=== PATIENT | male | born 1995 | race Caucasian/White ===

== ENCOUNTER 2021-11-07 15:51 | Inpatient (IN) | payer MEDICAID, OTHER ==
--- NOTE | 2021-11-07 17:32 | ED ---
Psych HPI - General Chief Complaint: Psychiatric Symptoms Stated Complaint: Mental health eval Time Seen by Provider: 11/07/21 16:16 Source: patient, RN notes reviewed Mode of arrival: ambulatory - History of Present Illness Initial Comments: This is a 26-year-old male who presents to the emergency department for psychiatric evaluation. Patient reports a long-standing history of mood swings and suicidal ideations. He is with his boss, who states that this seems to be progressing. He had a fairly severe panic attack at work last week. He currently takes Remeron and Vyvanse, however he has not been treated with anything else in the past. He was last hospitalized for psychiatric problems at [facility] in July of this year. He states that certain triggers have to do with various females in his life. He does currently feel suicidal and denies any homicidal ideations. Denies any fevers, chills, sore throat, cough, dyspnea, chest pain, palpitations, abdominal pain, nausea, vomiting, diarrhea, back pain, or headaches. MD Complaint: suicidal ideation, feels depressed History of same: Yes Associated Symptoms: denies other symptoms Treatments Prior to Arrival: none If Self Harm: admits thoughts of self harm - Related Data Allergies Allergy/AdvReac Type Severity Reaction Status Date / Time No Known Allergies Allergy Verified 11/07/21 16:12 Review of Systems ROS Statement: Those systems with pertinent positive or pertinent negative responses have been documented in the HPI. ROS Other: All systems not noted in ROS Statement are negative. Past Medical History Past Medical History: No Reported History History of Any Multi-Drug Resistant Organisms: None Reported Past Surgical History: No Surgical Hx Reported Past Psychological History: ADD/ADHD Smoking Status: Never smoker Past Alcohol Use History: None Reported Past Drug Use History: Marijuana General Exam Limitations: no limitations General appearance: alert, anxious Head exam: Present: atraumatic, normocephalic, normal inspection Respiratory exam: Present: normal lung sounds bilaterally. Absent: respiratory distress, wheezes, rales, rhonchi, stridor Cardiovascular Exam: Present: regular rate, normal rhythm, normal heart sounds. Absent: systolic murmur, diastolic murmur, rubs, gallop, clicks Neurological exam: Present: alert, oriented X3, CN II-XII intact Expanded Focused psych exam: Present: restlessness Skin exam: Present: warm, dry, intact, normal color. Absent: rash Course Vital Signs 11/07/21 16:09 Temperature 98.1 F Pulse Rate 88 Respiratory 16 Rate Blood Pressure 154/96 O2 Sat by Pulse 99 Oximetry Medical Decision Making - Medical Decision Making This is a 26-year-old male who presents to the emergency department for psychiatric evaluation. Patient was medically cleared with a negative alcohol level. Georgette with EPS evaluated the patient. He is signing himself in voluntarily for admission to the psychiatric unit. Disposition Clinical Impression: Suicidal ideations Disposition: ADMITTED IP TO THIS HOSP Referrals: Cedric Kang MD [Primary Care Provider] - 1-2 days
[2021-11-07] MEDS ORDERED: LORazepam 1 MG TAB PO PRN (20:23)
[2021-11-07] MEDS ORDERED: MAGNESIUM HYDROXIDE 2,400 MG/10 ML CUP PO PRN (20:23)
[2021-11-07] MEDS ORDERED: MAG HYDROX/AL HYDROX/SIMETH 30 ML CUP PO PRN (20:23)
[2021-11-07] MEDS ORDERED: HALOPERIDOL LACTATE 5 MG/ML 1 ML VIAL IM PRN (20:23)
[2021-11-07] MEDS ORDERED: ACETAMINOPHEN TAB 325 MG TAB PO PRN (20:23)
[2021-11-07] MEDS ORDERED: LORazepam 2 MG/ML INJ IM PRN (20:27)
[2021-11-07] MEDS ORDERED: haloperidoL 5 MG TAB PO PRN (20:28)
[2021-11-07] MEDS ORDERED: MELATONIN 5 MG TABLET PO SCH (21:00)
[2021-11-07] MEDS ORDERED: MIRTAZAPINE 15 MG TAB PO SCH (21:00)
[2021-11-07] MEDS ORDERED: MELATONIN 1 MG TAB PO SCH (21:00)
[2021-11-08 07:44] LABS: Basophils % (A) 1 %; Eosinophils # (A) 0.1 k/uL (0-0.7); Eosinophils % (A) 2 %; HCT 49.3 % (39.0-53.0); HGB 16.7 gm/dL (13.0-17.5); Lymphocytes # (A) 1.8 k/uL (1.0-4.8); Lymphocytes % (A) 33 %; MCH 32.7 pg (25.0-35.0); MCHC 33.9 g/dL (31.0-37.0); MCV 96.4 fL (80.0-100.0); Mean Platelet Volume 8.9; Monocytes # (A) 0.2 k/uL (0-1.0); Monocytes % (A) 4 %; Neutrophils # (A) 3.1 k/uL (1.3-7.7); Neutrophils % (A) 58 %; Platelet Count 188 k/uL (150-450); RBC 5.12 m/uL (4.30-5.90); WBC 5.4 k/uL (3.8-10.6)
[2021-11-08 08:04] LABS: ALT 33 U/L (4-49); AST 36 U/L (17-59); African American GFR (CKD) >90 (>60 ml/min/1.73 sqM); Albumin 4.8 g/dL (3.5-5.0); Alkaline Phosphatase 63 U/L (38-126); Anion Gap 7 mmol/L; Blood Urea Nitrogen 12 mg/dL (9-20); Calcium 9.4 mg/dL (8.4-10.2); Carbon Dioxide 27 mmol/L (22-30); Chloride 105 mmol/L (98-107); Glucose 97 mg/dL (74-99); Non-African American GFR(CKD) >90 (>60 ml/min/1.73 sqM); Potassium 4.1 mmol/L (3.5-5.1); Sodium 139 mmol/L (137-145); Total Bilirubin 1.5 mg/dL (0.2-1.3); Total Protein 7.5 g/dL (6.3-8.2)
[2021-11-08] MEDS ORDERED: LISDEXAMFETAMINE DIMESYLATE 20 MG PO SCH (09:00)
[2021-11-08 11:10] LABS: Chol/HDL Ratio 3.77 Ratio; LDL Cholesterol,Calculated 114.6 mg/dL (0.0-131.0); VLDL Calculation 19.92 mg/dL (5.00-40.00)
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
[2021-11-08] MEDS: lamoTRIgine 25 MG TAB PO SCH ×2 (13:42→20:32)
[2021-11-08] MEDS: LISDEXAMFETAMINE DIMESYLATE 20 MG PO SCH (14:44)
--- NOTE | 2021-11-08 15:33 | P.CONS ---
History of Present Illness - Reason for Consult Consult date: 11/08/21 Medical management Requesting physician: Brendon Genao - Chief Complaint Suicidal - History of Present Illness This is a pleasant 26-year-old patient follows with Dr. Kang. Patient is on medications for chronic insomnia and depression. Patient works [employer]. Lives with his boss. Patient presents with worsening symptoms of depression. Decrease appetite. Not sleeping well. Suicidal. He was brought in by his boss to the ER. Review of systems: GEN.: Decreased appetite, tired EYES: None HEENT: None NECK: None RESPIRATORY: None CARDIOVASCULAR: None GASTROINTESTINAL: BM pattern variable GENITOURINARY: None MUSCULOSKELETAL: None LYMPHATICS: None HEMATOLOGICAL: None PSYCHIATRY: Depressed suicidal NEUROLOGICAL: Not sleeping well Past medical history to include: Insomnia, depression Social history: Works at [employer]. Lives with his boss.. Denies alcohol or smoking. Does smoke marijuana Family history: Reviewed, noncontributory to presentation Physical examination: VITAL SIGNS: 98, 78, 16, 138.93, 99% room air GENERAL: BMI 24.4, sitting up in a chair, anxious appearing, slightly restless. EYES: Pupils equal. Conjunctiva normal. HEENT: External appearance of nose and ears normal, oral cavity grossly normal. NECK: JVD not raised; masses not palpable. HEART: First and second heart sounds are normal; no edema. LUNGS: Respiratory rate normal; clear to auscultation. ABDOMEN: Soft, nontender, liver spleen not palpable, no masses palpable. PSYCH: Alert and oriented x3; mood and affect anxiousl. MUSCULOSKELETAL:No Clubbing/cyanosis;muscles-grossly intact NEUROLOGICAL: Cranial nerves grossly intact; no facial asymmetry, power and sensation grossly intact. LYMPHATICS: No lymph nodes palpable in the axilla and neck INVESTIGATIONS, reviewed in the clinical context: White count 5.4 hemoglobin 16.7 platelets 188 potassium 4.1 BUN 12 creatinine 0.86 LDL 114 TSH 1.2 COVID-19: Not detected Assessment and plan: -Mood disorder versus bipolar Follow-up with psychiatrist December. Patient is started on Seroquel and Lamictal. -Chronic insomnia Hopefully get above medications sleep should get better -Recreational marijuana use Advised against the same -Mild anorexia from underlying psychiatry disorder. Encouraged to eat. Hopefully should get her better with medications Care was discussed with the patient. Thank you Dr. Genao Past Medical History Past Medical History: No Reported History History of Any Multi-Drug Resistant Organisms: None Reported Past Surgical History: No Surgical Hx Reported Smoking Status: Never smoker Medications and Allergies Home Medications Medication Instructions Recorded Confirmed Type Lisdexamfetamine Dimesylate 20 mg PO DAILY 11/07/21 11/07/21 History [Vyvanse] Mirtazapine [Remeron] 30 mg PO HS 11/07/21 11/07/21 History Allergies Allergy/AdvReac Type Severity Reaction Status Date / Time No Known Allergies Allergy Verified 11/07/21 19:02 Physical Exam Vitals: Vital Signs Temp Pulse Pulse Resp BP BP Pulse Ox 11/07/21 21:03 98.0 F 78 16 138/93 11/07/21 16:09 98.1 F 88 16 154/96 99 Results CBC & Chem 7: 11/08/21 07:21 11/08/21 07:21 Labs: Abnormal Lab Results - Last 24 Hours (Table) 11/08/21 Range/Units 07:21 Total Bilirubin 1.5 H (0.2-1.3) mg/dL
[2021-11-08] MEDS: QUEtiapine 50 MG TAB PO SCH (20:32)
[2021-11-09] MEDS: lamoTRIgine 25 MG TAB PO SCH ×2 (08:38→20:44)
[2021-11-09] MEDS: LISDEXAMFETAMINE DIMESYLATE 20 MG PO SCH (09:12)
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
--- NOTE | 2021-11-09 14:30 | P.PN ---
Progress Note - Text Progress Note Date: 11/09/21 - Chief Complaint Suicidal Hospital course: This is a pleasant 26-year-old patient follows with Dr. Kang. Patient is on medications for chronic insomnia and depression. Patient works [employer]. Lives with his boss. Patient presents with worsening symptoms of depression. Decrease appetite. Not sleeping well. Suicidal. He was brought in by his boss to the ER. 11/09/2021: Laying in bed. Eyes closed. Still feels low. Decreased appetite. Discussed with the patient to improve his sleep hygiene. Try to be more awake during day hours to help him sleep better at night. Had a BM this morning. Active Medications Acetaminophen (Acetaminophen Tab 325 Mg Tab) 650 mg PO Q4HR PRN PRN Reason: Mild Pain/Discomfort Al Hydroxide/Mg Hydroxide (Mag Hydrox/Al Hydrox/Simeth 30 Ml Cup) 30 ml PO Q4HR PRN PRN Reason: GI Upset Haloperidol (Haloperidol 5 Mg Tab) 5 mg PO TID PRN PRN Reason: Agitation or Acute Psychosis Haloperidol Lactate (Haloperidol Lactate 5 Mg/Ml 1 Ml Vial) 5 mg IM Q6HR PRN PRN Reason: Agitation or Acute Psychosis Lamotrigine (Lamotrigine 25 Mg Tab) 25 mg PO BID [facility] Last Admin: 11/09/21 08:38 Dose: 25 mg Lorazepam (Lorazepam 1 Mg Tab) 1 mg PO TID PRN PRN Reason: Anxiety, Agitation Last Admin: 11/09/21 12:32 Dose: 1 mg Lorazepam (Lorazepam 2 Mg/Ml Inj) 1 mg IM Q6HR PRN PRN Reason: Agitation or Acute Anxiety Magnesium Hydroxide (Magnesium Hydroxide 2,400 Mg/10 Ml Cup) 2,400 mg PO DAILY PRN PRN Reason: Constipation Lisdexamfetamine Dimesylate [Vyvanse] 20 Mg Capsule 20 mg PO DAILY [facility] Last Admin: 11/09/21 09:12 Dose: 20 mg Quetiapine Fumarate (Quetiapine 50 Mg Tab) 50 mg PO HS [facility] Last Admin: 11/08/21 20:32 Dose: 50 mg Past medical history to include: Insomnia, depression Social history: Works at [employer]. Lives with his boss.. Denies alcohol or smoking. Does smoke marijuana Family history: Reviewed, noncontributory to presentation Physical examination: VITAL SIGNS: 98.2, 74, 16, 1:30/62, 99% room air GENERAL: Laying in bed, comfortable. EYES: Pupils equal. Conjunctiva normal. HEENT: External appearance of nose and ears normal, oral cavity grossly normal. NECK: JVD not raised; masses not palpable. HEART: First and second heart sounds are normal; no edema. LUNGS: Respiratory rate normal; clear to auscultation. ABDOMEN: Soft, nontender, liver spleen not palpable, no masses palpable. PSYCH: Alert and oriented x3; mood and affect low. INVESTIGATIONS, reviewed in the clinical context: White count 5.4 hemoglobin 16.7 platelets 188 potassium 4.1 BUN 12 creatinine 0.86 LDL 114 TSH 1.2 COVID-19: Not detected Assessment and plan: -Mood disorder versus bipolar on Seroquel and Lamictal. -Chronic insomnia Sleep hygiene discussed. On Seroquel -Recreational marijuana use Advised against the same -Mild anorexia from underlying psychiatry disorder. 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 Increase activity. Thank you Dr. Genao
[2021-11-09] MEDS: QUEtiapine 50 MG TAB PO SCH (20:44)
[2021-11-10] MEDS: lamoTRIgine 25 MG TAB PO SCH ×2 (08:43→20:32)
[2021-11-10] MEDS: LISDEXAMFETAMINE DIMESYLATE 20 MG PO SCH (09:33)
[2021-11-10 10:53] LABS: Appearance,Urine Clear (Clear); Bilirubin,Urine Negative (Negative); Blood,Urine Negative (Negative); Color,Urine Light Yellow; Glucose,Urine (UA) Negative (Negative); Ketones,Urine Negative (Negative); Leukocyte Esterase,Urine Negative (Negative); Nitrite,Urine Negative (Negative); PH, Urine 6.5 (5.0-8.0); Protein,Urine Negative (Negative); Specific Gravity,Urine 1.011 (1.001-1.035); Urobilinogen,Urine <2.0 mg/dL (<2.0)
[2021-11-10 11:08] LABS: Amphetamine Screen,Urine Detected (NotDetected); Barbiturate Screen,Urine Not Detected (NotDetected); Benzodiazepines Screen,Urine Not Detected (NotDetected); Cocaine Screen,Urine Not Detected (NotDetected); Methadone Screen, Urine Not Detected (NotDetected); Opiate Screen,Urine Not Detected (NotDetected); Oxycodone Screen, Urine Not Detected (NotDetected); Phencyclidine Screen,Urine Not Detected (NotDetected); Tricyclic Antidepressant,Urine Not Detected (NotDetected); Urn Cannabinoid Scrn Not Detected (NotDetected)
--- NOTE | 2021-11-10 11:43 | P.PN ---
Progress Note - Text Progress Note Date: 11/10/21 Interval History: Patient was seen sitting in on group today and was directable and agreeable to speak with field underwriter in the office. Patient claims that he is doing much better in terms of his mood. He states that his mood is better and more "stable". He claims that he is also trying to go to groups more and participate in also doing meditation which has been helping him. He is denying any anxiety today. He claims that the medications have been helping him and he is denying any rash at this time. He states that he slept fairly last night and has a fair appetite. At this time patient denies any suicidal or homical ideations, intent or plan. Patient denies any auditory, visual hallucinations and denies any paranoia or delusions. Patient denies any side effects from the medications and has been compliant with meds. Mental Status Exam: General Appearance: Patient appears to be thin, tall, long hair, wearing glasses, stated age is alert, directable, and attempts to cooperate. Patient appears to have improving hygiene and grooming. Behavior: Patient is seated without any agitated behavior. more directable. Speech: Patient's speech is fluent and nonpressured. [place]. Speaks with a lisp Mood/Affect: Patient reports their mood is improving mildly today, affect is congruent and constricted. Suicidality/Homicidality: Patient denies having any homicidal ideation intent or plan. Denies any suicidal ideations intent or plan Perceptions: Patient denies any visual hallucinations and denies any auditory hallucinations Though content/process: There is no evidence of any delusional thought content and thought process is linear and goal-directed. concrete. Memory and concentration: AOX3, grossly intact for the purposes of this session Judgment and insight: improving midlly IMPRESSIONS: Mood disorder unspecified, rule out bipolar depression versus major depressive disorder Cannabis use disorder mild Plan: -Patient continues to meet criteria for inpatient psychiatric admission for symptom stabilization and safety. Patient has not signed adult voluntary form and medication consent and was placed in patient's chart. -Medications: Seroquel 50 mg daily at bedtime for mood stabilization/insomnia, Lamictal 25 mg twice a day for mood stabilization/depression. He is denying any rash at this time. -When necessary Ativan and Haldol for agitation/aggression. -NRT - not needed as patient does not smoke -SW on board for discharge planning. Encouraged the patient to participate in milieu. likely discharge tomorrow.
[2021-11-10] MEDS: QUEtiapine 50 MG TAB PO SCH (20:32)
[2021-11-11 07:01] VITALS: BP 129/87; PULSE 84; RESP 18; TEMP 97.8
[2021-11-11] MEDS: lamoTRIgine 25 MG TAB PO SCH (08:16)
[2021-11-11] MEDS: LISDEXAMFETAMINE DIMESYLATE 20 MG PO SCH (08:30)
--- NOTE | 2021-11-11 11:48 | P.DS ---
Providers Date of admission: 11/07/21 19:34 Expected date of discharge: 11/11/21 Attending physician: Brendon Genao MD Consults: 11/07/21 20:23 Consult Physician Routine Consulting Provider: Eric Herrera Consult Reason/Comments: medical management Do you want consulting provider notified?: Yes Primary care physician: Cedric Kang - Discharge Diagnosis(es) (1) Unspecified mood [affective] disorder Current Visit: Yes Status: Acute Priority: High (2) Cannabis use disorder, mild, abuse Current Visit: Yes Status: Acute Priority: Low Hospital Course: Admission HPI: Admission note was completed by auto service writer "Patient is a 26-year-old male who currently lives with his boss in the house and works at [employer]. Patient presented to the hospital yesterday complaining of mood swings and suicidal thoughts. Patient apparently had a severe panic attack at work and came to the hospital. Patient was admitted voluntarily to the mental health unit agreeable to speak to ready today. Patient states that he "walked out of work at [employer]" and states that he did this on a whim. He claims that he did take "without realizing it". He states that it was in response to a customer and he could not verbalize why he did it. He states that "something flipped in my head" and he states that he began having "bad thoughts". He claims that he also was having suicidal thoughts and went to the [place] and started crying. He states that he does have mood instability however is feeling mildly depressed now. He states that he does have anxiety from being in the hospital. He claims that his sleep has been "on and off" and appetite is in fair. Patient denies any current suicidal or homicidal ideations intent or plan. At this time patient denies any auditory or visual hallucinations. Patient denies any flight of ideas racing thoughts and increased in goal directed behavior. Patient admits to using cannabis regularly." Hospital course: Upon admission to the unit patient was directable and agreeable to commence treatment and signed adult voluntary form . Patient got along well with other patients on the unit and followed unit protocol. Patient was compliant with the medications and denied any side effects throughout hospital course. Patient was started on Seroquel 50 mg daily at bedtime for mood stabilization/insomnia, Lamictal 25 mg twice a day for mood stabilization/depression. Patient spoke of his stressors and engaged in therapy both group and individual. Patient was also seen by medical team for history and physical exam. Throughout the course of the hospitalization patient gradually improved with regards to mood, anxiety, sleep and returned back to their baseline level of functioning. On the day of discharge patient denied any suicidal or homicidal ideations intent or plan denied any auditory or visual hallucinations. Patient endorsed wanting to live for his health and family. The patient denied any access to guns or weapons. Patient denied any paranoia and did not endorse any delusions. Patient does not have a significant history of substance abuse and was counseled on abstaining from all substances including alcohol and marijuana. Patient was also counseled on the medications and need for regular compliance and was encouraged to follow-up with their outpatient appointment for mental health and also for primary care. adult protective caseworker to help arrange patient is discharged today back home with outpatient follow-up. Mental status exam: General Appearance: Patient appears to be thin, long hair, glasses, stated age is alert, pleasant, and cooperative. Patient is in no acute distress and has improved hygiene and grooming Behavior: Patient is calmly seated without any agitated behavior. Speech: Patient's speech is fluent and nonpressured. Monotone. Mood/Affect: Patient reports their mood is "better", affect is congruent and constricted Suicidality/Homicidality: Patient denies having any suicidal or homicidal ideat ion intent or plan. Perceptions: Patient denies any auditory or visual hallucinations. Though content/process: There is no evidence of any delusional thought content and thought process is linear and goal-directed. more future oriented Memory and concentration: AOX3, grossly intact for the purposes of this session. Can spell "WORLD" backwards correctly. Judgment and insight: improved with guarded prognosis Impression: Mood disorder unspecified, rule out bipolar depression versus major depressive disorder Cannabis use disorder mild abuse Plan: -Continue with discharge today as patient has improved and stabilized psychiatrically and is not currently an imminent threat to himself and/or others. Patient will remain at chronically elevated risk for harm to self and/or others due to his impulsivity. -Continue medications: Seroquel 50 mg daily at bedtime for mood stabilization/insomnia, Lamictal 25 mg twice a day for mood stabilization/depression. Patient was advised of the potential for a rash and to continue monitoring his skin. -Patient was counseled on the need for medication compliance and appropriate follow-up at mental health and also primary care for medical issues. Patient verbalized understanding and agreed. -Social work to help arrange her patient's discharge today back to his boss's house. Social work also to arrange for patients follow up appointments with [facility] for psychiatric care along with follow up with primary care provider. -Patient counseled on abstaining from recreational drugs and marijuana and alcohol. Was informed/educated on the adverse effects on their physical and mental health. Patient verbally agreed and understood. -Patient was instructed to return to the hospital or seek immediate medical care if their psychiatric or medical symptoms do worsen or reoccur. Allergies Allergy/AdvReac Type Severity Reaction Status Date / Time No Known Allergies Allergy Verified 11/07/21 19:02 Laboratory Results WBC 5.4 k/uL (3.8-10.6) 11/08/21 07:21 RBC 5.12 m/uL (4.30-5.90) 11/08/21 07:21 Hgb 16.7 gm/dL (13.0-17.5) 11/08/21 07:21 Hct 49.3 % (39.0-53.0) 11/08/21 07:21 MCV 96.4 fL (80.0-100.0) 11/08/21 07:21 MCH 32.7 pg (25.0-35.0) 11/08/21 07:21 MCHC 33.9 g/dL (31.0-37.0) 11/08/21 07:21 RDW 13.0 % (11.5-15.5) 11/08/21 07:21 Plt Count 188 k/uL (150-450) 11/08/21 07:21 MPV 8.9 11/08/21 07:21 Neutrophils % 58 % 11/08/21 07:21 Lymphocytes % 33 % 11/08/21 07:21 Monocytes % 4 % 11/08/21 07:21 Eosinophils % 2 % 11/08/21 07:21 Basophils % 1 % 11/08/21 07:21 Neutrophils # 3.1 k/uL (1.3-7.7) 11/08/21 07:21 Lymphocytes # 1.8 k/uL (1.0-4.8) 11/08/21 07:21 Monocytes # 0.2 k/uL (0-1.0) 11/08/21 07:21 Eosinophils # 0.1 k/uL (0-0.7) 11/08/21 07:21 Basophils # 0.0 k/uL (0-0.2) 11/08/21 07:21 Sodium 139 mmol/L (137-145) 11/08/21 07:21 Potassium 4.1 mmol/L (3.5-5.1) 11/08/21 07:21 Chloride 105 mmol/L (98-107) 11/08/21 07:21 Carbon Dioxide 27 mmol/L (22-30) 11/08/21 07:21 Anion Gap 7 mmol/L 11/08/21 07:21 BUN 12 mg/dL (9-20) 11/08/21 07:21 Creatinine 0.86 mg/dL (0.66-1.25) 11/08/21 07:21 Est GFR (CKD-EPI)AfAm >90 (>60 ml/min/1.73 sqM) 11/08/21 07:21 Est GFR (CKD-EPI)NonAf >90 (>60 ml/min/1.73 sqM) 11/08/21 07:21 Glucose 97 mg/dL (74-99) 11/08/21 07:[address] Glu mg/dL 106 11/08/21 07:21 Hemoglobin A1c 5.3 % (0.0-6.0) 11/08/21 07:21 Calcium 9.4 mg/dL (8.4-10.2) 11/08/21 07:21 Total Bilirubin 1.5 mg/dL (0.2-1.3) H 11/08/21 07:21 AST 36 U/L (17-59) 11/08/21 07:21 ALT 33 U/L (4-49) 11/08/21 07:21 Alkaline Phosphatase 63 U/L (38-126) 11/08/21 07:21 Total Protein 7.5 g/dL (6.3-8.2) 11/08/21 07:21 Albumin 4.8 g/dL (3.5-5.0) 11/08/21 07:21 Triglycerides 99.60 mg/dL (0.00-149.00) 11/08/21 07: Cholesterol 183.00 mg/dL (0.00-200.00) 11/08/21 07: LDL Cholesterol, Calc 114.6 mg/dL (0.0-131.0) 11/08/21 07: VLDL Cholesterol, Calc 19.92 mg/dL (5.00-40.00) 11/08/21 07: HDL Cholesterol 48.50 mg/dL (40.00-60.00) 11/08/21: Cholesterol/HDL Ratio 3.77 Ratio 11/08/21 07: TSH 1.250 mIU/L (0.465-4.680) 11/08/21 07: Urine Color Light Yellow 11/10/21 10:30 Urine Appearance Clear (Clear) 11/10/21 10:30 Urine pH 6.5 (5.0-8.0) 11/10/21 10:30 Ur Specific [place] 1.011 (1.001-1.035) 11/10/21 10:30 Urine Protein Negative (Negative) 11/10/21 10:30 Urine Glucose (UA) Negative (Negative) 11/10/21 10:30 Urine Ketones Negative (Negative) 11/10/21 10:30 Urine Blood Negative (Negative) 11/10/21 10:30 Urine Nitrite Negative (Negative) 11/10/21 10:30 Urine Bilirubin Negative (Negative) 11/10/21 10:30 Urine Urobilinogen <2.0 mg/dL (<2.0) 11/10/21 10:30 Ur Leukocyte Esterase Negative (Negative) 11/10/21 10:30 Urine Opiates Screen Not Detected (NotDetected) 11/10/21 10:30 Ur Oxycodone Screen Not Detected (NotDetected) 11/10/21 10:30 Urine Methadone Screen Not Detected (NotDetected) 11/10/21 10:30 Ur Propoxyphene Screen Not Detected (NotDetected) 11/10/21 10:30 Ur Barbiturates Screen Not Detected (NotDetected) 11/10/21 10:30 U Tricyclic Antidepress Not Detected (NotDetected) 11/10/21 10:30 Ur Phencyclidine Scrn Not Detected (NotDetected) 11/10/21 10:30 Ur Amphetamines Screen Detected (NotDetected) H 11/10/21 10:30 U Methamphetamines Scrn Not Detected (NotDetected) 11/10/21 10:30 U Benzodiazepines Scrn Not Detected (NotDetected) 11/10/21 10:30 Urine Cocaine Screen Not Detected (NotDetected) 11/10/21 10:30 U Marijuana (THC) Screen Not Detected (NotDetected) 11/10/21 10:30 Coronavirus (PCR) Not Detected (Not Detectd) 11/07/21 18:48 Vital Signs Temp 97.8 F 11/11/21 07:01 Pulse 84 11/11/21 07:01 Resp 18 11/11/21 07:01 BP 129/87 11/11/21 07:01 Pulse Ox 99 11/11/21 07:01 FiO2 Patient Condition at Discharge: Stable Plan - Discharge Summary Discharge Rx Participant: No New Discharge Prescriptions: New lamoTRIgine [LaMICtal] 25 mg PO BID 30 Days tab QUEtiapine [SEROquel] 50 mg PO HS 30 Days tab Continue Lisdexamfetamine Dimesylate [Vyvanse] 20 mg PO DAILY Discontinued Mirtazapine [Remeron] 30 mg PO HS Discharge Medication List Lisdexamfetamine Dimesylate [Vyvanse] 20 mg PO DAILY 11/07/21 [History] QUEtiapine [SEROquel] 50 mg PO HS 30 Days tab 11/11/21 [Rx] lamoTRIgine [LaMICtal] 25 mg PO BID 30 Days tab 11/11/21 [Rx] Follow up Appointment(s)/Referral(s): [facility] [Outside] - 11/12/21 11:00 am (11-12-21 @ 11:00 with Farhat 11/18/21 @ 3;[address] Suarez ) Cedric Kang MD [Primary Care Provider] - 1-2 days Patient Instructions/Handouts: Depression (DC) Activity/Diet/Wound Care/Special Instructions: Avoid the use of street drugs and alcohol. Take all prescriptions as prescribed. When you are in need of refills on your medications, please contact your medical provider and/or outpatient psychiatrist to have this done. Please go to scheduled outpatient appointment for aftercare treatment. If symptoms return or become worse, call the crisis line at and/or go to the nearest emergency room for evaluation. Discharge Disposition: HOME SELF-CARE
== END 2021-11-11 12:40 | disposition home or self-care (01) | DRG 885 ==
LOC: EC 15:51 → 3MHU 19:34
PROVIDERS: ADMIT Psychiatry & Neurology Psychiatry; ATTEND Psychiatry & Neurology Psychiatry
DX: F39 Unspecified mood [affective] disorder (principal); R45.851 Suicidal ideations; F90.9 Attention-deficit hyperactivity disorder, unspecified type; F80.0 Phonological disorder; F51.04 Psychophysiologic insomnia; Z20.822 Contact with and (suspected) exposure to COVID-19; R63.0 Anorexia; E80.6 Other disorders of bilirubin metabolism; R45.87 Impulsiveness; Z68.24 Body mass index [BMI] 24.0-24.9, adult; Z81.8 Family history of other mental and behavioral disorders
CPT/HCPCS: 80053; 80061; 80306; 81003; 82075; 83036; 84443; 85025; 87635; 99285